=== PATIENT | male | born 1990 | race Caucasian/White ===

== ENCOUNTER 2018-09-26 03:53 | Emergency (ER) | payer BC ==
[~2018-09-26] VITALS: Ht 177.8 cm; Wt 63.5 kg
[2018-09-26 03:55] VITALS: Ht 177.8 cm; Wt 63.5 kg
[2018-09-26 04:31] LABS: CALCIUM 9.6 mg/dL (8.5-10.1); CHLORIDE SERUM 100 mmol/L (98-107); CREATININE SERUM 0.8 mg/dL (0.7-1.3); GFR1 > 60 mL/min; GLUCOSE SERUM 148 mg/dL (74-106); POTASSIUM SERUM 3.6 mmol/L (3.5-5.1); SODIUM SERUM 139 mmol/L (136-145)
[2018-09-26 04:35] LABS: ALBUMIN 4.3 g/dL (3.4-5.0); ALKALINE PHOSPHATASE 86 U/L (46-116); ALT/SGPT 25 U/L (16-63); AST/SGOT 18 U/L (15-37); BILIRUBIN TOTAL 0.7 mg/dL (0.20-1.00); LIPASE 76 IU/L (73-393)
[2018-09-26 04:37] LABS: BASOPHIL % 0.1 % (0-2); PLATELET COUNT 273 x10^3mcL (130-400); RED CELL DISTRIBUTION WIDTH 12.6 % (11.5-14.5)
[2018-09-26 06:08] VITALS: BP 126/89
== END 2018-09-26 06:08 | disposition home or self-care (01) ==
LOC: ED 03:53
PROVIDERS: Student in an Organized Health Care Education/Training Program
DX: K80.50 Calculus of bile duct without cholangitis or cholecystitis without obstruction (principal)
CPT/HCPCS: J1885; J2270; J2405; J7030; Q0092